=== PATIENT | female | born 1985 | race Caucasian/White ===

== ENCOUNTER 2016-06-02 13:28 | Emergency (ER) | payer OTHER ==
[~2016-06-02] VITALS: Ht 157.5 cm; Wt 86.4 kg
[~2016-06-02 13:28] MED LIST: 00186-0370-20 IH; ATIVAN 0.50.5 MG/TAB PO; CEPHALEXIN500 M1 PO; DESYREL 50MG50 MG PO; MINIPRESS 5M5 MG/CAP PO; NORCO 325 MG-51 TAB PO; PREDNISONE20 MG PO; PROAIR HFA0.09 MG/AC IH; PROTONIX20 MG PO; ROBITUSSIN A-C S1 M1 PO; SEROQUEL 2525 MG/TAB PO; SEROQUEL XR50 MG PO; TESSALON PERLE200 MG PO; ZITHROMAX500 M2 PO; ZOFRAN 4MG T4 MG/TAB PO; ZOLOFT 25MG25 MG PO
[2016-06-02 13:31] VITALS: BP 135/74
[2016-06-02] MEDS ORDERED: AMOXICILLIN 50500 MG PO (13:51)
[2016-06-02 14:23] VITALS: PULSE 85; TEMP 97.9
== END 2016-06-02 14:23 | disposition home or self-care (01) ==
LOC: COL.ER 13:28
DX: H66.92 Otitis media, unspecified, left ear (principal); H60.92 Unspecified otitis externa, left ear

== ENCOUNTER 2016-08-03 12:04 | Emergency (ER) | payer OTHER ==
[~2016-08-03] VITALS: Ht 157.5 cm; Wt 85.5 kg
[~2016-08-03 12:04] MED LIST changes: +AMOXICILLIN 50500 MG PO
[2016-08-03 12:10] VITALS: TEMP 98.4
[2016-08-03 14:31] LABS: BASO # 0.1 (0.0-0.2); BASO % 0.8 % (0.0-2.0); EOS # 0.2 (0.0-0.7); EOS % 1.6 % (0-4.0); GRAN # 5.7 (1.4-6.5); GRAN % 61.2 % (42.2-75.2); HEMOGLOBIN 12.5 g/dl (12.5-16.0); LYMPH # 2.8 (1.2-3.4); LYMPH % 29.9 % (20.0-51.0); MEAN CELL VOLUME 86 fl (80.0-100.0); MEAN CORPUSCULAR HEMOGLOBIN 27 pg (27.0-31.0); MEAN CORPUSCULAR HGB CONC 32 g/dl (33.0-37.0); MEAN PLATELET VOLUME 10.9 fl (7.4-10.4); MONO # 0.6 (0.1-0.6); MONO % 6.1 % (1.7-9.3); PLATELET COUNT 411 K/mm3 (130-400); RED BLOOD COUNT 4.56 M/mm3 (4.10-5.30); REDCELL DISTRIBUTION WIDTH-CV 13.4 % (11.5-14.5); WHITE BLOOD COUNT 9.3 K/mm3 (4.8-10.8)
[2016-08-03 14:41] LABS: ADJUSTED CALCIUM 9.4 mg/dL (8.4-10.2); ALBUMIN 4.2 gm/dL (3.5-5.0); BILIRUBIN,TOTAL 0.6 mg/dL (0.0-1.0); CALCIUM 9.6 mg/dL (8.4-10.2); CREATININE, serum 0.87 mg/dL (0.52-1.25); POTASSIUM 4.1 mmol/L (3.4-5.0); TOTAL PROTEIN 7.9 gm/dL (6.4-8.2)
[2016-08-03 16:05] LABS: PH 6 (5-8); URINE APPEARANCE Clear; URINE BACTERIA None Seen /hpf; URINE BILIRUBIN Negative (NEGATIVE); URINE BLOOD Negative (NEGATIVE); URINE COLOR Yellow; URINE GLUCOSE Negative (NEGATIVE); URINE KETONE Negative (NEGATIVE); URINE RBC 0-2 /hpf; URINE UROBILINOGEN Negative (NEGATIVE)
[2016-08-03] MEDS ORDERED: PHENERGAN 25 TA25 MG PO (17:06)
[2016-08-03 17:32] VITALS: BP 121/53; PULSE 72
== END 2016-08-03 17:34 | disposition home or self-care (01) ==
LOC: COL.ER 12:04
PROVIDERS: Emergency Medicine
DX: R10.13 Epigastric pain (principal); R11.10 Vomiting, unspecified
CPT/HCPCS: J2270; J2405; J2550; J7030